=== PATIENT | female | born 1945 | race Caucasian/White ===

== ENCOUNTER 2021-04-18 14:00 | Outpatient (CLI) | payer MEDICARE, OTHER ==
--- NOTE | 2021-04-22 06:44 | CONSULTATION NOTE ---
Palliative Care Consultation - Referral Referring Provider: Dr. 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 She has been followed by Dr. Powers at [facility]. She had been trialed on Riluzole, but discontinued because of GI side effects. She was not interested in the next medication Radicava, or research trials. She has been managed at home with the support of her , daughter, and sister. As she is progressed she had a PEG tube placed 11/17/2020. Her most significant symptoms have been poor toleration of the tube feedings, with increased abdominal pain and cramping but has since found a formula with mostly peptides, is able to tolerate around 3-4 cartons, though this is less in her caloric needs. She has continued to lose weight, today she is at 110, her baseline was 155 prior to illness. She is taking water by mouth, though is having increased trouble with thin liquids with coughing, has trialed some other juices, is no longer followed by speech therapy, though may benefit from some instruction, did recommend Thick-It. She has not had pneumonia, does do some modifications to decrease risk of aspiration, and her lungs are clear today. Patient has had continued respiratory decline as well, she is on the BiPAP at night from 11:30 PM to 68 AM. She does take frequent rest during the day, with BiPAP support for breathlessness during this time. She does get breathless with walking, and has continued to decline functionally. This is both related to her breathlessness and her muscle weakness. She does have difficulty with secretions, she has trialed glycopyrrolate with very little help but and dislikes side effects. She is currently managing her secretions with only occasional suctioning. She is able to ambulate, gait is slightly unsteady, has had 1 fall. She does have some orthostatic symptoms of dizziness, and complains of ongoing persistent and worsening fatigue. She remains still continent of bowel and bladder, does have intermittent constipation and difficulty managing this. Her voice is quite weak, but is able to manage through our conversation today. Though she does have text of voice on her phone. Her is providing the most of the caregiving, they are both very saddened by her ongoing decline and worsening quality of life. Goal of today's visit is to address advance care planning and complete POLST, and build rapport for future decision-making and decline. Medical/Surgical History - Past Medical History Cardiovascular: reports: High cholesterol Respiratory: reports: Other (on Bipap) Neuro: Other (ALS. 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 Support System: Patient and her have been for 55 years, they have a dustin home down at [facility]. They have 1 daughter who comes over weekly to provide support and respite. She also has a sister Maribel who lives on [place], who is here for the appointment and helps advocate and support Keo and patient as well. Family History - Family History Family History: Mother: , CVA/TIA (age 64 stroke complications), Father: , Cancer (age 72) Medications/Allergies - Medications Home Medications: Ambulatory Orders Medication Instructions Recorded Confirmed Gabapentin [Neurontin] 600 mg PO QPM 04/22/21 04/22/21 modafiniL [Provigil] 100 mg PO DAILY 04/22/21 04/22/21 polyethylene glycoL 3350 [Miralax] 17 gm PO DAILY PRN 04/22/21 04/22/21 - Allergies Allergies/Adverse Reactions: Allergies Allergy/AdvReac Type Severity Reaction Status Date / Time codeine AdvReac Nausea Verified 04/22/21 06:50 Review of Systems - Constitutional Constitutional: reports: Fatigue, Chills, Night sweats, Weight loss (110) - Eyes Eyes: reports: Corrective lenses - Ears, Nose & Throat Ears, Nose & Throat: reports: Other (voice weak; drooling worsening) - Cardiovascular Cardiovascular: reports: Lightheadedness, Exertional dyspnea, Decr. exercise tolerance. denies: Chest pain, Edema - Respiratory Respiratory: reports: Cough (with drinking particularly thin liquids), Orthopnea (uses Bipap at bedtime; mid), SOB at rest, SOB with exertion - Gastrointestinal Gastrointestinal: reports: Abdominal pain, Constipation, Nausea, Bloating, Poor appetite, Early satiety - Genitourinary Genitourinary: reports: Frequency, Incontinence - Musculoskeletal Musculoskeletal: reports: Back pain, Muscle aches, Stiffness, Muscle weakness, Assistive devices (uses cane), Other (recent fall when bending over;) - Integumentary Integumentary: reports: Dryness, Other ("sun spots") - Neurological Neurological: reports: General weakness, Focal weakness (upper extremities), Headache, Dizziness, Numbness, Memory problems (mild), Abnormal gait, Incoordination, Slurred speech - Psychiatric Psychiatric: reports: Anxiety, Other (intermittent insomnia). denies: D epression - Hematologic/Lymphatic Hematologic/Lymph: denies: Recurrent infections - All Other Systems All Other Systems: reports: Reviewed and negative Physical Exam - Vital Signs Pulse Rate: 84 Respiratory Rate: 18 (22 with activity; talking; shallow) O2 Saturation: 94 Blood Pressure: 112/68 - Physical Exam General Appearance: positive: No acute distress, Alert, Cachetic Eyes Bilateral: positive: Normal inspection ENT: positive: Other (minor drooling noted) Neck: positive: Trachea midline Cardiovascular: positive: Regular rate & rhythm Respiratory: positive: Diminished in bases. negative: No respiratory distress (increased respiratory effort with ambulation; talking), Wheezes, Rales, Rhonchi Abdomen: positive: Non-tender, Soft, Nml bowel sounds, Other (PEG tube) Skin: positive: Pallor, Dryness, Pressure wound (dull pink area on coccyx; no open areas) Extremities: positive: No pedal edema, Other (gait slow and measured; using c ane). negative: Full ROM (limited ROM UE) Neurologic/Psychiatric: positive: Oriented x3, Mood/affect nml, Other (easily cries) Palliative Care - POLST Patient has POLST: Yes POLST Status: DNR, Selective Treatment (completed at visit; please see discussion; no trach/respiratory support other than bipap) Pain: Pain improved, Location (abdominal pain with tub feedings) Feelings of wellbeing/Perceived Quality of Life: Fair, Worsening Sleep: Variable sleep pattern Constipation: Yes, Unmanaged, Intermittent constipation Performance Status: Patient continues with declining functional status, this is more attributed to her weakness, she is still ambulatory though is quite unsteady in the context of her dizziness/lightheadedness. She does have some adaptive equipment, and does need increasing assistance with ADLs.She finds this very discouraging to have increasing dependence. - Palliative Care Discussion: Patient does understand she is going to continue decline with ALS, her biggest worry is that impact on her and her increasing care needs. They do have DPOA for medical feel that with their aluminizer, will get copy of this for records. Goal today is to discuss further the POLST. Patient is quite clear regarding a do not attempt resuscitation, allow natural . Her goals are to focus on quality of life, she very much still enjoys time with her family and friends, she does have frequent visitors and with improved toleration of tube feedings is feeling better. After much discussion regarding the natural trajectory of ALS, and future decisions particular around respiratory support, patient is quite clear she does not want a tracheostomy and ventilatory support. BiPAP support is still acceptable, she would still treat reversible conditions at this point in time as far as pneumonia recognizing that this is a high risk of sequela from respiratory decline, and at end-of-life would like to have a at home. This was translated to the POLST, with DN AR/allow natural and selective treatments with primary goal of treating medical conditions while avoiding invasive measures which includes DO NOT INTUBATE. Impression and Recommendations - Palliative Care Impression: This is a dustin 75-year-old woman with bulbar onset ALS, currently not on any ALS therapies. She continues to have fairly rapid decline over this last year, is tube feeding dependent, increasing use of BiPAP for respiratory support, has had significant weight loss, and functional decline most the centered on her upper extremities. Palliative care providing support for symptom management, psychosocial support, and anticipatory guidance. Recommendations/Counseling Done: 1. Weight loss. They have found a formula that does appear to be tolerated, they are currently using this 3 times a day, with extra water flushes 30-40 mils before and after. She is able still to take some oral fluids, appears about 18 to 22 ounces. She is using a peptide formula with about 500 saadia. Counseling provided regarding recommendations to be able to increase tolerance of volume of feeding. Concern regarding patient's fluid status is well, encouraged if decreased intake to use PEG tube for bolus water as well. 2. Dysphagia. Patient having increased trouble with choking particularly on thin liquids. Will explore availability of telehealth from [facility] for further support, patient does know to touch chin reviewed aspiration precautions. Did recommend trial some thickened, and focus more on nectar thick at this point until further recommendations made. Patient is not aspirated at this point in time, but is aware of risk. 3. ALS. Patient at this point in time is continued to decline, her ALSFRSR score today is 22, last recent recorded score on was 33 out of 48. Patient aware of ongoing decline, discussion today regarding POLST and goals particular around respiratory support. Patient is due for PFTs and clinic visit in May, though travel is becoming more difficult. 4. Stage I decub on coccyx. Reviewed pressure relief measures, including recommended of pressure-relief cushion for better support. She is doing offloading, but is quite thin, will be more diligent. 5. Constipation. Patient with intermittent constipation, discussed using MiraLAX and tube feedings, as finds it quite distasteful and difficult to get volume down.Instructed to use 17 g and titrate accordingly for soft daily BM to minimize straining and constipation. 6. Fatigue. Patient quite hesitant to use "speed". Discussed positive negatives of modinifel, recommended trial half tab in a.m. and evaluate r esponse. Can titrate to effect if helpful. 7. Sialorrhea. Does have glycopyrrolate but disliked side effects, currently is managing without significant difficulty. Counseling provided regarding med ication, will wait to add to regimen. 8. Advance care planning. Counseling provided regarding anticipatory guidance in the context of disease progression, decisions weighing benefits and burdens, and completion of POLST. Will get copy of POLST to neurology. 90 minutes in [id number] with counseling greater than 50% in the context of goals of care, anticipatory guidance regarding disease trajectory, symptom management, role of palliative care, and setting of rapport.
== END 2021-04-18 14:01 | disposition home or self-care (01) ==
LOC: PC 14:00
PROVIDERS: ATTEND Nurse Practitioner Adult Health
DX: Z51.5 Encounter for palliative care (principal); R63.4 Abnormal weight loss; K59.00 Constipation, unspecified; L89.151 Pressure ulcer of sacral region, stage 1; R53.83 Other fatigue; K11.7 Disturbances of salivary secretion; G12.21 Amyotrophic lateral sclerosis; Z93.1 Gastrostomy status; Z66 Do not resuscitate
CPT/HCPCS: 99345

== ENCOUNTER 2021-05-04 14:30 | Outpatient (CLI) | payer MEDICARE, OTHER ==
--- NOTE | 2021-05-04 17:00 | CONSULTATION NOTE ---
Palliative Care Follow Up - Referral Referring Provider: Ruchi Hendrix MD Time of Visit: [id number] Referral setting: Home Referral Reason: ALS/Gastric Stasis/Constipation - Information Sources Records reviewed: Previous records reviewed History/Review of Systems obtained from: Patient, Family ( Keo and Daughter Doris) Exam limitations: Clinical condition (patient with difficulty talking) - History of Present Illness Update Brief HPI Update: This is a dustin 76-year-old woman who was diagnosed with bulbar onset ALS early 2020, she is followed by Dr. Powers at [facility]. She does have a PEG tube placed 11/17/2020, and has continued to struggle with getting adequate calories today. They had trialed multiple different feedings, currently on formula with mostly peptides, but has not been able to tolerate more than 2 cartons a day, this continues to be less than her needed caloric intake. I saw her 2 weeks ago, she has lost another pound and a half, she was 108.5, her baseline was 155 prior to illness. Today she presents with increased dry mouth, on examination she actually has oral candidiasis, she is still struggling with constipation, is working with speech therapy but is having trouble with swallowing despite use of Thick-It, and has a very weak cough effort. Patient is continued respiratory decline, she is on BiPAP at night for 6 to 8 hours, she does frequently rest during the day with BiPAP support for breathlessness. She gets breathless with any conversation, and this continues to deteriorate. She has had a difficult couple of days, with increased nasal and eye watering, and oral secretions with drooling. She does find it is difficult and using suction, they did get her some 2000 which is helped clear I suspect some of this is worsened because of the oral candidiasis. She is able to ambulate gait is slightly unsteady, she does have orthostatic symptoms of dizziness, and continues with persistent fatigue. continues to provide most of the caregiving, they are very saddened by her ongoing decline and worsening quality of life. He is feeling somewhat overwhelmed with the increasing level of complexity to her care, as well as her decline. Her daughter joins us today, she comes a couple times a week, to provide support, and is very engaged in the visit with problem solving today. Past Medical History: High cholesterol, on BiPAP, ALS bulbar onset, dependent on tube feedings, history of breast cancer, history of kidney stones, chronic hearing loss, osteoarthritis, fatigue, chronic back pain, basal cell CA Social History - Living Situation Living arrangement: At home Living Situation: With spouse/s.o. Support System: Patient lives with her dustin and they have been for 55 years. They had home down at [facility]. They have 1 daughter who comes over and provide support and respite, she also [place] and helps advocate and support Keo as well. Medications/Allergies - Medications Home Medications: Ambulatory Orders Medication Instructions Recorded Confirmed Gabapentin [Neurontin] 600 mg PEG QPM 04/22/21 05/04/21 modafiniL [Provigil] 100 mg PO DAILY 04/22/21 05/04/21 polyethylene glycoL 3350 [Miralax] 17 gm PO DAILY PRN 04/22/21 05/04/21 Fluticasone [Flonase] 1 spray GATO DAILY 05/04/21 05/04/21 Metoclopramide HCl 5 mg PEG TID PRN MDD 20 mg 05/04/21 05/04/21 Nystatin [Mycostatin] 5 ml PO QID 05/04/21 05/04/21 - Allergies Allergies/Adverse Reactions: Allergies Allergy/AdvReac Type Severity Reaction Status Date / Time codeine AdvReac Nausea Verified 04/22/21 06:50 Review of Systems - Constitutional Constitutional: reports: Fatigue, Chills, Night sweats, Weight loss (110 04/18 108.5) - Eyes Eyes: reports: Corrective lenses - Ears, Nose & Throat Ears, Nose & Throat: reports: Hearing loss, Nasal congestion, Postnasal drainage, Mouth lesions, Dry mouth, Other (voice weak; drooling worsening) - Cardiovascular Cardiovascular: reports: Lightheadedness, Exertional dyspnea, Decr. exercise tolerance. denies: Chest pain, Edema - Respiratory Respiratory: reports: Cough (with drinking particularly thin liquids), Orthopnea (uses Bipap at bedtime; mid day), SOB at rest, SOB with exertion - Gastrointestinal Gastrointestinal: reports: Abdominal pain, Constipation (unable to use Miralax stool soft), Nausea, Bloating, Poor appetite, Early satiety - Genitourinary Genitourinary: reports: Frequency, Incontinence - Musculoskeletal Musculoskeletal: reports: Back pain, Muscle aches, Stiffness, Muscle weakness, Assistive devices (uses cane) - Integumentary Integumentary: reports: Dryness, Other ("sun spots") - Neurological Neurological: reports: General weakness, Focal weakness (upper extremities), Headache, Dizziness, Numbness, Memory problems (mild), Abnormal gait, Incoordination, Slurred speech - Psychiatric Psychiatric: reports: Anxiety, Other (intermittent insomnia). denies: Depression - Endocrine Endocrine: reports: Intolerance to cold - All Other Systems All Other Systems: reports: Reviewed and negative Physical Exam - Vital Signs Temperature: 97.3 C Pulse Rate: 87 Respiratory Rate: 16 O2 Saturation: 96 (ra @ rest) Blood Pressure: 132/84 - Physical Exam General Appearance: positive: No acute distress, Alert, Cachetic Eyes Bilateral: positive: Normal inspection ENT: positive: Oral lesions, Other (minor drooling noted) Neck: positive: Trachea midline Cardiovascular: positive: Regular rate & rhythm Respiratory: positive: Diminished in bases. negative: No respiratory distress (increased respiratory effort with ambulation; talking), Wheezes, Rales, Rhonchi Abdomen: positive: Non-tender, Soft, Nml bowel sounds, Distended (mild bloating), Other (PEG tube) Skin: positive: Pallor, Dryness, Pressure wound (dull pink area on coccyx; no open areas) Extremities: positive: No pedal edema, Other (gait slow and measured; using cane). negative: Full ROM (limited ROM UE) Neurologic/Psychiatric: positive: Oriented x3, Mood/affect nml, Weakness, Slurred/abnml speech, Flat affect, Other (easily cries) Palliative Care - POLST Patient has POLST: Yes POLST Status: DNR, Selective Treatment Feelings of wellbeing/Perceived Quality of Life: Poor, Worsening Sleep: Variable sleep pattern Constipation: Yes, Unmanaged, Comment (stool soft; did not put miralax in TF; difficulty pusching) Performance Status: Patient continues with declining status, attributed to her weakness. She is amb ulatory though is quite unsteady in the context of her dizziness and lightheadedness. She does have some adaptive equipment, she finds it very discouraging to have increasing dependence. - Palliative Care Discussion: Patient continues to have fluctuating days, though continues in decline. does appear somewhat overwhelmed, particular with patient's increased choking and concerns regarding her decline. Daughter is here today to provide support, continuing to adjust care plan in attempting to meet patient's needs as well as stay consistent with patient's perception of quality of life. Patient did complete POLST last time with DN AR/DNI and selective treatments. With increasing care support, this is a mixed bag in the context with more caregiving tasks to do versus care coming to them with suggestions to improve quality of life.Continue to explore quality of life issues for patient, what is most important, as well as the context of complexity how much she wants to continue with weighing benefits and burdens of interventions, particularly in the context of conversation today around continuous feedings Impression and Recommendations - Palliative Care Impression: This is a dustin 76-year-old woman with bulbar onset ALS, currently not on any ALS therapies. She continues to have a fairly rapid decline through the year, continue to have weight loss, is tube feeding dependent, increasing use of BiPAP for respiratory support as well as worsening symptom burden. Palliative care providing support for symptom management, psychosocial support and anticipatory guidance Recommendations/Counseling Done: 1. Weight loss. This continues to be somewhat complex, they had trialed multiple formulas, but patient is still not able to increase the volume. She has been currently getting 1 box twice a day, patient identifies bloating and early satiety. Has been walking after tube feeding to see if this will help. Counseling provided regarding will trial small dose of metoclopramide 5 mg prior to feeding, has been is going to try and add half can during midday. Again it is quite overwhelming as patient does not tolerate volume going in at a reasonable rate. This is a worry also in the context of having conversations about continuous feeds. Patient does not want to be hooked up and is concerned about her abdominal discomfort being persistent. Will trial the metoclopramide, may increase to 10 mg if not effective, but will start with lower dose. Ordered liquid to be able to use it through PEG tube. Patient has lost another pound and a half, is very discouraged. 2. Dysphagia. Patient had increased coughing, with increased sick thickened secretions. She does have a very dry mouth, on examination has oral candidiasis. She also has some biotin. Counseling provided regarding use of biotin, will order medication for candidiasis, is working with speech therapy. We will continue to monitor Patient did have more coughing episodes these last couple days, did pull out the CoughAssist. Daughter will work with patient and trying to become more comfortable with it. We discussed to practice makes perfect, and if choking would want to be able to access this with some confidence. 3. Oral candidiasis. Patient does have white coating on tongue, is quite dry and uncomfortable and scratchy. We will go ahead and order nystatin 5 mils 4 times daily, instructed if can swallow otherwise swish and spit. Instructed to leave 15 minutes after swish and spit for maximum effectiveness. Patient verbalized understanding. 4. Constipation. Reviewed MiraLAX to be mixed with carton before dumped and tube feeding back, was "clumping". At this point in time though patient describes bowels soft, is more of a problem of evacuation. Instructed to use by scrotal suppositories 10 mg q two days. 5. Nasal congestion. This is somewhat multifactorial, it is quite dry heat in there, will trial Flonase. Instructed to wait on Claritin, secondary to discovery of oral candidiasis. Patient with difficult with thickened secretions and phlegm, does not want to add to this. 6. Dry eyes. Patient does not close her eyes completely, also BiPAP blows into her face. Expect some of the wateriness is in response to not only her ALS but also environmental triggers. Will get some TheraTears. 7. Advanced care planning. Patient does have POLST in place with DN AR and DNI and selective treatments. Patient has not been hospitalized nor history of pneumonia. At this point in time she is quite clear does not want to be on a breathing machine with the trach. We will continue explore goals and weighing benefits and burdens of decisions as they come along. 60 minutes with greater than 50% of this done in counseling regarding symptom management, anticipatory guidance, caregiver support and continued clarification of goals
== END 2021-05-04 14:31 | disposition home or self-care (01) ==
LOC: PC 14:30
PROVIDERS: ATTEND Nurse Practitioner Adult Health
DX: Z51.5 Encounter for palliative care (principal); G12.21 Amyotrophic lateral sclerosis; K59.89 Other specified functional intestinal disorders; B37.0 Candidal stomatitis; R53.83 Other fatigue; R42 Dizziness and giddiness; Z85.3 Personal history of malignant neoplasm of breast; M19.90 Unspecified osteoarthritis, unspecified site; M54.9 Dorsalgia, unspecified; G89.29 Other chronic pain; R05.9 Cough, unspecified; K59.00 Constipation, unspecified; R53.1 Weakness; R26.9 Unspecified abnormalities of gait and mobility; R47.81 Slurred speech; F41.9 Anxiety disorder, unspecified; G47.00 Insomnia, unspecified; Z66 Do not resuscitate; R63.4 Abnormal weight loss; R13.10 Dysphagia, unspecified; R09.81 Nasal congestion; H04.129 Dry eye syndrome of unspecified lacrimal gland
CPT/HCPCS: 99350

== ENCOUNTER 2021-05-18 14:30 | Outpatient (CLI) | payer MEDICARE, OTHER ==
--- NOTE | 2021-05-18 21:05 | CONSULTATION NOTE ---
Palliative Care Follow Up - Referral Referring Provider: Dr. Kaur/Dr. Powers Time of Visit: [id number] Referral setting: Home Referral Reason: ALS/oral candidiasis/Wt. Lostt - Information Sources Records reviewed: Previous records reviewed History/Review of Systems obtained from: Patient, Family ( Keo; Daughter Cora; sister Maribel for part of visit) Exam limitations: Clinical condition (patient's voice is very soft; difficult to understand) - History of Present Illness Update Brief HPI Update: This is a dustin 76-year-old woman who was diagnosed with bulbar onset ALS early 2020, she is followed by Dr. Powers at [facility]. She does have a PEG tube placed 11/17/2020 and continues to struggle with getting adequate calories. This has to do with early satiety, feeling of bloating, and physical discomfort with the feeding. We have had multiple conversations regarding continuous feed, increasing volume, increased frequency of feeding. Part of the barrier is she gets quite exhausted after the feeding, and needs to rest. Today she weighs in at 107.6, 2 weeks ago she was 108.5, her baseline was actually 155 prior to illness.Given patient's symptoms I still suspect some of this is gastric stasis, she had trialed the metoclopramide, reports she had a reaction about 45 minutes after she took it, a feeling of dizziness and being uncomfortable. She has not been willing to rechallenge a test dose again. Patient continues with oral candidiasis, she has not been able to tolerate the nystatin, and continues with thickened sticky secretions. She does have significant amount of drooling, also when she drinks which she is continue to choose to drink water, it does sit does drool out of her mouth. Her tongue is quite sore, will transition over to Diflucan with nystatin support. Patient is continued with respiratory decline, she is on BiPAP at night for 6 to 8 hours, she has been using the Flonase with better improvement of her nasal passages at night. She uses it also after feeding secondary to rest. Today she presents with significant fatigue, notable respiratory effort with her breathing, though denies any distress. She is not hypoxic at 97%. She is still ambulatory, though does have some orthostatic dizziness. She has been working with home physical therapy, speech therapy and has benefited from this. After much discussion today, will add nursing as well. She did receive her booster from the [facility], and I had been admin istering her flu shot today. Patient is quite anxious already regarding pending ALS visit 06/13 at [facility]. She is worried as far as does not have a portable BiPAP support, regarding the fatigue, and goal would be for PFTs and follow-up with ALS team. She is wondering if there is a way to facilitate the information and do a telehealth. Given patient's goals that are palliative in nature, will follow up and see if can do PFTs here, though reminded her this is not a specialty clinic and their respiratory therapist are more geared for measuring decline but could see if can facilitate it in [place]. Past Medical History: High cholesterol, BiPAP support, history of breast cancer, history of kidney stones, chronic hearing loss, osteoarthritis, fatigue, chronic back pain, basal cell CA Social History - Living Situation Living arrangement: At home Living Situation: With spouse/s.o. Support System: Patient lives with her dustin Keo they have been for 55 years. They have a home [place] on [address]. They have 1 daughter comes in provide support and respite she is currently in school, she is here today. She has been accessing the ALS support group with very good questions today. She also has a Sister Maribel who is present for part of the visit who provides support and helps advocate and support Keo as well. She is well supported by friends and community, but limited in her energy and with declining speech it is more difficult for visiting. Medications/Allergies - Medications Home Medications: Ambulatory Orders Medication Instructions Recorded Confirmed Gabapentin [Neurontin] 600 mg PEG QPM 04/22/21 05/19/21 polyethylene glycoL 3350 [Miralax] 17 gm PO DAILY PRN 04/22/21 05/19/21 Fluticasone [Flonase] 1 spray GATO DAILY 05/04/21 05/19/21 Nystatin [Mycostatin] 5 ml PO QID 05/04/21 05/19/21 Fluconazole [Diflucan] 100 mg PEG .X2 DOSE Q 3D 05/19/21 05/19/21 - Allergies Allergies/Adverse Reactions: Allergies Allergy/AdvReac Type Severity Reaction Status Date / Time codeine AdvReac Nausea Verified 04/22/21 06:50 Review of Systems - Constitutional Constitutional: reports: Fatigue (worsening), Chills, Night sweats, Weight loss (110 04/18 108.5 11/; 107.6) - Eyes Eyes: reports: Corrective lenses - Ears, Nose & Throat Ears, Nose & Throat: reports: Hearing loss, Nasal congestion, Postnasal drainage (improved with flonase), Mouth lesions (not much improvement), Dry mouth, Other (voice weak; drooling worsening) - Cardiovascular Cardiovascular: reports: Lightheadedness, Exertional dyspnea, Decr. exercise tolerance. denies: Chest pain, Edema - Respiratory Respiratory: reports: Cough (with drinking particularly thin liquids; very weak and ineffective; did not follow up on cough machine), Orthopnea (uses Bipap at bedtime; mid day), SOB at rest, SOB with exertion - Gastrointestinal Gastrointestinal: reports: Abdominal pain, Constipation (unable to use Miralax stool softener; tried bisacodyl with results; needing more direction), Nausea, Bloating, Poor appetite, Early satiety - Genitourinary Genitourinary: reports: Frequency, Incontinence - Musculoskeletal Musculoskeletal: reports: Back pain, Muscle aches, Stiffness, Muscle weakness, Assistive devices (uses cane) - Integumentary Integumentary: reports: Dryness, Other ("sun spots") - Neurological Neurological: reports: General weakness, Focal weakness (upper extremities), Headache, Dizziness, Numbness, Memory problems (mild), Abnormal gait, Incoordination, Slurred speech - Psychiatric Psychiatric: reports: Anxiety, Other (intermittent insomnia). denies: Depression - Endocrine Endocrine: reports: Intolerance to cold - All Other Systems All Other Systems: reports: Reviewed and negative Physical Exam - Vital Signs Temperature: 97 C Pulse Rate: 90 Respiratory Rate: 20 O2 Saturation: 97 Blood Pressure: 156/96 - Physical Exam General Appearance: positive: No acute distress, Alert, Anxious (related to shot), Cachetic Eyes Bilateral: positive: Normal inspection ENT: positive: Oral lesions (little improvement; min. use of nystatin), Other (minor drooling noted) Neck: positive: Trachea midline Cardiovascular: positive: Regular rate & rhythm Respiratory: positive: Diminished in bases. negative: No respiratory distress (increased respiratory effort with ambulation; talking), Wheezes, Rales, Rhonchi Abdomen: positive: Non-tender, Soft, Nml bowel sounds, Distended (mild bloating), Other (PEG tube) Skin: positive: Pallor, Dryness, Pressure wound (dull pink area on coccyx; no open areas) Extremities: positive: No pedal edema, Other (gait slow and measured; using cane). negative: Full ROM (limited ROM UE) Neurologic/Psychiatric: positive: Oriented x3, Mood/affect nml, Weakness, Slurred/abnml speech, Flat affect Palliative Care - POLST Patient has POLST: Yes POLST Status: DNR, Selective Treatment Feelings of wellbeing/Perceived Quality of Life: Fair, Acceptable, Worsening Sleep: Sleeps well Constipation: Yes, Unmanaged, Comment (related to weakness) Performance Status: Patient has been doing exercises with physical therapy, does feel like this is helped as far as her strength and core strength. She is still quite orthostatic I suspect autonomic dysfunction, but is trying to ambulate after she eats to move the food and gas along. She remains quite weak, uses cane for balance. We will continue to monitor. - Palliative Care Discussion: Much discussion regarding multiple care needs, Keo remains feeling somewhat overwhelmed by patient's change in status. Did discuss can add nursing to be able to help facilitate some of the issues and address anxiety, can call palliative care [employer] for more problem-solving if needed. Patient remains again quite pragmatic, is enjoying her family and friends. Does perceive that she is still having ongoing decline, is feeling somewhat overwhelmed at thinking of going to the ALS clinic. Goals remain palliative in nature, revisited in the context of making her appointment, patient is not planning any kind of more aggressive respiratory support, wanting to focus on quality of life, but appears much more frail. She is making decisions in the context of this and weighing benefits and burdens knowing she is compromise particularly around feeding.Patient does have a POLST in place, goals would be to transition to hospice when appropriate Impression and Recommendations - Palliative Care Impression: This is a dustin 76-year-old woman with bulbar onset ALS, currently not on any ALS therapies. She continues to demonstrate ongoing decline, is tube feeding dependent, increasing use of BiPAP for respiratory support, with goals for focus on quality of life. Palliative care providing support for symptom management, psychosocial support and anticipatory guidance Recommendations/Counseling Done: 1. Weight loss. This continues to be somewhat complex, we did trial of the metoclopramide, patient perceived reaction. Will not revisit given her anxiety regarding this. Daughter had been on ALS support group, they had talked about gas release/burping the PEG tube. Reviewed how 1 would do this with a open syringe, recommended at least giving it a try. Patient is trying to at least maintain current weight, does become challenging given her fatigue with her feedings, and discomfort. Patient very much does not want to do continuous feedings, feels already somewhat compromised as far as her perceptions for quality of life and connection to the tube. 2. Oral candidiasis. She did not do well with consistency with nystatin, will go ahead and order Diflucan 100 mg dose tonight, and in 3 days. Encouraged to continue to use nystatin at least 2-3 times a day, good oral care including tongue brushing, and will continue to monitor. Reviewed again how to use the nystatin, both her and her get overwhelmed with multiple tasks that are involved in her care. 3. Dysphagia. Patient continues with difficulty with cough effort, is working with speech therapy. They were not able to continue our practice with [facility], encouraged to try again. Will see if can engage speech therapy to help as well. 4. Constipation. Patient is having soft bowels, but continues have trouble with evacuation. Did get the bicycle suppository, but unable to tolerate putting it in in the bathroom, discussed techniques for laying on bed, inserting and waiting 15 minutes at least prior to evacuation. Will attempt some bowel training, instructed to do this after her a.m. feeding every other day. Patient does feel constipation as to her bloating and ability to tolerate her feeding. 5. Nasal congestion. This is somewhat multifactorial, she is using the Flonase with some improvement. reports she just needs to be more consistent. 6. ALS. Patient does appear to have increasing respiratory effort, does fatigue by end of day. Notable use with anxiety of her accessory muscles, but also noted regular pattern about this time each day. We did discuss possible portable BiPAP machine, or moving it out in the living room during the evening to give her a little more support and decrease her fatigue. They will look at problem solving this, daughter will check with ALS organization for equipment. 7. Advanced care planning. Patient does have POLST in place with DN AR/DNI and selective treatments. Patient has pending visit to ALS clinic, is wondering if can facilitate a telehealth. Left message for ALS nurse Tammy, with questions related to facilitating PFT's, labs, xrays etc. locally to support telehealth visit. Requested also information to help assist with resp questions/support. 60 minutes with greater than 50% of this done in counseling, reviewing symptom management, increasing care needs, psychosocial support, patient was administered flu shot without any untoward effects. And counseling for anticipatory guidance. Coordination of care with ALS clinic
== END 2021-05-18 14:31 | disposition home or self-care (01) ==
LOC: PC 14:30
PROVIDERS: ATTEND Nurse Practitioner Adult Health
DX: Z51.5 Encounter for palliative care (principal); G12.21 Amyotrophic lateral sclerosis; B37.0 Candidal stomatitis; Z66 Do not resuscitate; Z93.1 Gastrostomy status; R53.83 Other fatigue; H91.90 Unspecified hearing loss, unspecified ear; M19.90 Unspecified osteoarthritis, unspecified site; G89.29 Other chronic pain; M54.9 Dorsalgia, unspecified; R10.9 Unspecified abdominal pain; K59.00 Constipation, unspecified; R35.0 Frequency of micturition; R32 Unspecified urinary incontinence; F41.9 Anxiety disorder, unspecified; R63.4 Abnormal weight loss; R13.10 Dysphagia, unspecified; R09.81 Nasal congestion
CPT/HCPCS: 99350

== ENCOUNTER 2021-05-28 14:30 | Outpatient (CLI) | payer MEDICARE, OTHER ==
--- NOTE | 2021-05-28 16:51 | CONSULTATION NOTE ---
Palliative Care Follow Up - Referral Referring Provider: Dr. Ruchi Hendrix/Dr. Joyce Powers Time of Visit: [id number] Referral setting: Home Referral Reason: Bulbar Onset ALS/Weight Loss/Oral candidiasis - Information Sources Records reviewed: Previous records reviewed History/Review of Systems obtained from: Patient Exam limitations: Clinical condition (patient's voice very soft; difficulty to understand) - History of Present Illness Update Brief HPI Update: This is a dustin 76-year-old woman who was diagnosed with bulbar onset ALS early 2020, she has been followed by Dr. Powers at the [facility] ALS clinic. She has had continuous weight loss, and had a PEG tube placed 11/17/2020, but still continues to struggle with getting adequate calories. She is tolerating her tube feedings better laying down on the couch, and with initiation of metoclopramide. Patient had been trialed on riluzole but had been discontinued because of GI effects, and was not interested in the next medication or research trials. Patient's baseline weight prior to illness was 155, and she has continued to lose weight, last week was 107.6, has lost 3 or 4 plan pounds just over the time I been seeing her. She was having symptoms of gastric stasis, intermittent constipation, and complains of feeling of early satiety and bloating. They have trialed multiple different feeding formulas, without much improvement. Currently she is using 2 cartons a day 1 in the AM and 1 in the PM. She goes back on BiPAP after a.m. feeding.She is also losing her ability to swallow, having more difficulty with managing her secretions, and her cough effort is becoming a topic of significant concern.The nystatin was making her choking worse, have discontinued this. Her mouth does look better though, will transition to weekly 100 mg Diflucan. What is quite notable is patient's fatigue and breathing is worsening, she has been cautioned about using thin liquids, does not like the Thick-It. After much discussion she really is about focusing on just quality recognizing her decline. She is very resistant to any kind of continuous feed, she could use more fluids, continues difficulty with her speech production, and does create communication problems between her and her . Past Medical History: High cholesterol, BiPAP support, history of breast cancer, history of kidney stones, chronic hearing loss, osteoarthritis, fatigue, chronic back pain, basal cell CA Social History - Living Situation Living arrangement: At home Living Situation: With spouse/s.o. Support System: Patient lives with her dustin Keo, they have been for 55 years. They have a home [place] on [address], which she very much enjoys. They have a daughter Cora who is currently in school, provides a respite and has help advocate for patient with medical system. She has a Sister Maribel who is also part of the visit today, who provide support and helps advocate and support for Keo as well. She is well loved and supported by friends in her community, but has limited energy and with declining speech it is difficult for visiting. Medications/Allergies - Medications Home Medications: Ambulatory Orders Medication Instructions Recorded Confirmed Gabapentin [Neurontin] 600 mg PEG QPM 04/22/21 05/29/21 polyethylene glycoL 3350 [Miralax] 17 gm PO DAILY PRN 04/22/21 05/29/21 Fluticasone [Flonase] 1 spray GATO DAILY 05/04/21 05/29/21 Fluconazole [Diflucan] 100 mg PEG .WEEKLY 05/19/21 05/29/21 Metoclopramide HCl 5 mg PEG BID MDD prior to feeding 05/29/21 05/29/21 - Allergies Allergies/Adverse Reactions: Allergies Allergy/AdvReac Type Severity Reaction Status Date / Time codeine AdvReac Nausea Verified 04/22/21 06:50 Review of Systems - Constitutional Constitutional: reports: Fatigue (worsening much less able to ambulate), Weight loss ( 107.6 last visit) - Eyes Eyes: reports: Corrective lenses - Ears, Nose & Throat Ears, Nose & Throat: reports: Hearing loss, Nasal congestion, Postnasal drainage (improved with flonase), Dry mouth (some residual on tongue), Other (voice weak; drooling worsening). denies: Mouth lesions (improved) - Cardiovascular Cardiovascular: reports: Lightheadedness, Exertional dyspnea, Decr. exercise tolerance. denies: Chest pain, Edema - Respiratory Respiratory: reports: Cough (with drinking particularly thin liquids; very weak and ineffective; having difficulty with cough machine; nystatin made it worse), Orthopnea (uses Bipap at bedtime; mid day), SOB at rest, SOB with exertion - Gastrointestinal Gastrointestinal: reports: Abdominal pain, Constipation ( tried bisacodyl with results x 1; had busy holiday unable to do recommended scheduled supp qod), Nausea (with TF), Bloating, Poor appetite, Early satiety - Genitourinary Genitourinary: reports: Frequency, Incontinence - Musculoskeletal Musculoskeletal: reports: Back pain, Muscle aches, Stiffness, Muscle weakness, Assistive devices (uses cane), Other (kyphosis) - Integumentary Integumentary: reports: Dryness, Other ("sun spots") - Neurological Neurological: reports: General weakness, Focal weakness (upper extremities), Dizziness, Numbness, Memory problems (mild), Abnormal gait, Incoordination, Slurred speech - Psychiatric Psychiatric: reports: Anxiety (exacerbated by cough issues), Other (intermittent insomnia). denies: Depression - Endocrine Endocrine: reports: Intolerance to cold - All Other Systems All Other Systems: reports: Reviewed and negative Physical Exam - Vital Signs Temperature: 97.2 C Pulse Rate: 85 Respiratory Rate: 18 O2 Saturation: 95 Blood Pressure: 142/90 - Physical Exam General Appearance: positive: No acute distress, Alert, Anxious (related to declining status; pending MD appointment), Cachetic Eyes Bilateral: positive: Normal inspection ENT: positive: Other (drooling noted). negative: Oral lesions (some residual on tongue; buccal area resolved) Neck: positive: Trachea midline Cardiovascular: positive: Regular rate & rhythm Respiratory: positive: Diminished in bases. negative: No respiratory distress (increased respiratory effort with ambulation; talking), Wheezes, Rales, Rhonchi Abdomen: positive: Non-tender, Soft, Nml bowel sounds, Distended (mild bloating), Other (PEG tube) Skin: positive: Pallor, Dryness Extremities: positive: No pedal edema. negative: Full ROM (limited ROM UE) Neurologic/Psychiatric: positive: Oriented x3, Mood/affect nml, Weakness, Slurred/abnml speech, Flat affect Palliative Care - POLST Patient has POLST: Yes POLST Status: DNR, Selective Treatment Pain: No pain Tiredness/Fatigue: Severe (7-10) Drowsiness/Sedation: Mild (1-3) Nausea: Mild (1-3) Anorexia: Moderate (4-6), Weight loss Dyspnea: Severe (7-10) Depression: Mild (1-3) Anxiety: Severe (7-10) Feelings of wellbeing/Perceived Quality of Life: Poor, Worsening Sleep: Variable sleep pattern Constipation: Yes, Intermittent constipation Performance Status: Patient's functional status continues to decline, this is reflective of both her dyspnea and her worsening ability to ambulate secondary to loss of muscle mass and weakness. She is spending more time in the chair or laying on the couch. Bathing and personal care are becoming more difficult. It has been more complicated secondary to the holidays and more company. - Palliative Care Discussion: Family conference with patient, , myself, and sister Maribel. Patient is continued to deteriorate even over the the last week and a half since last seen her on 05/18. is quite clear that this is their reality, do not expect her to improve and very much worried about her continued decline. Patient is very resistant to going down to the [facility], feels overwhelmed at the thought of this journey and stressed. We discussed goals of care, in the context of patient most likely not to do any further interventions, would benefit from having BiPAP revisited and looked at settings, as well as at this point in time patient's prognosis looks very poor with her continued difficulty with feedings and respiratory decline. Patient very much wants to be at home, not to be hospitalized, would like a at home though we did discuss my concerns in the context of her disease process and worries about a respiratory demise/crisis. Introduced the concept of hospice, as an extra layer of support in alignment with her goals, but this would then mean no hospitalization and less unable to manage her symptoms at home. She feels this is actually in alignment with her goals. We did discuss her prognosis is most likely weeks not prolonged months, the goal would be to minimize her suffering, recognizing she could have an event at any time. The both and sister tearceci, are supportive of patient's goals for no further interventions. Patient does have 1 daughter, who is in the middle of finals, they are very worried about the timing of their decision. It was with agreement I would call and speak with her. Called and spoke with Cora their daughter [phone] at length regarding patient's demise, patient's goals, and the role of transitioning to hospice. She is very supportive of her parents, and feels this would be helpful particularly for her dad who is feeling more and more overwhelmed. We did discuss prognosis most most likely poor, but with increased support and supervision will decrease likelihood of crisis though it is certainly high risk given her disease process and concern for respiratory demise. Questions were answered, introduced hospice role in team, she will be an active participant in the context of supporting caregiver. Impression and Recommendations - Palliative Care Impression: This is a dustin 76-year-old woman with bulbar onset ALS, currently not on any ALS therapies. She is continue to demonstrate ongoing decline, is tube feeding dependent with less than caloric needs, increasing use of BiPAP for respiratory support, her ALSFRSR score is 11 down from 22 on admit 04/18/2021. Palliative care providing support for goals of care conversation today, patient has decided to transition to comfort focused care, hospice referral is made. Recommendations/Counseling Done: 1. Weight loss. Patient did retry the metoclopramide, and laying on the couch, is doing better but still not able to push beyond 2 cartons of feeding a day. I did not weigh her today, given the context of our conversation. Though she appears to continue to be quite frail and with continued weight loss. Counseling provided regarding feeding for comfort, at any point she could make a decision to withdraw care given her goals. 2. Oral candidiasis. The nystatin continue to cause increased trouble with choking and coughing. We will go ahead and order Diflucan 100 mg weekly, it has improved, though she continues to struggle with dry mouth and oral secretions. 3. Dysphagia. Patient continues with very weak cough effort, continues to try and take small amounts of fluids secondary to dryness of her mouth. Though in observation is drooling most of this out. Recommended she minimize intake secondary to aspiration precautions. Did get out the cough assist, really visited patient's expectations of how to use it. Again encouraged her to use it once or twice a day to get familiar with it. She has had several mornings where it has been quite panicky and takes quite a while to recover. 4. Constipation. Patient continues to have soft bowels, and trouble with evacuation. She does have bisacodyl suppositories, But given her schedule over this last week with company was unable to initiate recommended bowel program which was to do it after her a.m. feeding every other day. She has had a bowel movement with the suppository in the last few days, but does find it difficult to "fit everything in" with her lack of energy. 5. ALS. Patient continues to decline with increased fatigue by end of day, had recommended using BiPAP in the evenings, to decrease her fatigue and respiratory effort. She remains quite resistant to any kind of changes, but does acknowledge declining status. Patient due to go to ALS clinic, had spoken to ALS nurse Candice Celestin [phone]. If patient going to be focusing on comfort focused care, discussed benefit to patient, patient has pending appointment and very concerned about patient's ongoing rapid decline. We will communicate back, conversation regarding transitioning to hospice team support and comfort focused care. Does have pending respiratory visit but not until June. Will follow up and see if hospice can initiate this sooner through there respiratory service support area. Patient has had ongoing rapid decline over the last several weeks, which is multifactorial, suspect prognosis is more in terms of weeks not months. 6. Advanced care planning. Patient does have POLST in place with DN AR/DNI and selective treatments. Family conference today, with decision to transition to hospice, communication to ALS clinic, as well as staffed with hospice medical dosimetrist and referral set up for . Communication with [facility], does have pending visit from tomorrow, request they continue to follow-up on safety measures and aspiration precautions and notified of pending hospice referral. Counseling provided to family regarding services provided by hospice team, anticipatory guidance regarding concerns regarding disease trajectory and need for increased support. 60 minutes with greater than 50% of this done in counseling regarding goals of care, coordination of care with hospice/[facility] and ALS clinic.
== END 2021-05-28 14:31 | disposition home or self-care (01) ==
LOC: PC 14:30
PROVIDERS: ATTEND Nurse Practitioner Adult Health
DX: Z51.5 Encounter for palliative care (principal); G12.21 Amyotrophic lateral sclerosis; R63.4 Abnormal weight loss; B37.0 Candidal stomatitis; R06.02 Shortness of breath; R13.10 Dysphagia, unspecified; R05.9 Cough, unspecified; R53.1 Weakness; R53.83 Other fatigue; K59.00 Constipation, unspecified; Z79.899 Other long term (current) drug therapy; Z93.1 Gastrostomy status; Z66 Do not resuscitate
CPT/HCPCS: 99350